=== PATIENT | female | born 1955 | race Caucasian/White ===

== ENCOUNTER 2019-12-12 15:25 | Emergency (ER) | payer OTHER ==
[2019-12-12 15:31] VITALS: TEMP 98
[2019-12-12] MEDS ORDERED: ONDANSETRON 4 MG/2 ML VIAL IVP STA (15:48)
[2019-12-12] MEDS ORDERED: SODIUM CHLORIDE 0.9% 500 ML 500 ML IV STA (15:48)
[2019-12-12] MEDS ORDERED: diphenhydrAMINE 50 MG/ML 1 ML VIAL IVP STA (15:48)
--- NOTE | 2019-12-12 15:56 | ED ---
General Adult HPI - General Chief complaint: Headache Stated complaint: Headache Time Seen by Provider: 12/12/19 15:34 Source: patient, RN notes reviewed, old records reviewed Mode of arrival: ambulatory Limitations: no limitations - History of Present Illness Initial comments: 64-year-old female patient presents to ED with chief complaint of right temporal headache. Patient reports that she does occasionally get mild migraines however this headache is worse than normal. She reports that she woke up with a headache at approximately 7:30 this morning. Reports that when she is at rest the headache is mild however whenever she walks the headache becomes more severe. She denies any changes in vision. She denies any loss of consciousness. Describes it as a pressure. Denies any other complaints. Systemic: Pt denies fatigue, fever/chills, rash. Pt denies weakness, night sweats, weight loss. Neuro: Pt denies visual disturbances, syncope or pre-syncope. HEENT: Pt denies ocular discharge or irritation, otalgia, rhinorrhea, pharyngitis or notable lymphadenopathy. Cardiopulmonary: Pt denies chest pain, SOB, heart palpitations, dyspnea on exert ion. Abdominal/GI: Pt denies abdominal pain, n/v/d. : Pt denies dysuria, burning w/ urination, frequency/urgency. Denies new onset urinary or bowel incontinence. MSK: Pt denies myalgia, loss of strength or function in extremities. Neuro: Pt denies new onset weakness, paresthesias. - Related Data Home Medications Medication Instructions Recorded Confirmed Escitalopram [Lexapro] 10 mg PO HS 12/12/19 12/12/19 Loratadine [Claritin] 10 mg PO DAILY PRN 12/12/19 12/12/19 Pseudoephedrine [Sudafed] 30 mg PO DAILY PRN 12/12/19 12/12/19 Previous Rx's Medication Instructions Recorded Ketorolac [Toradol] 10 mg PO Q8HR PRN #10 tab 12/12/19 Allergies Allergy/AdvReac Type Severity Reaction Status Date / Time codeine Allergy Nausea & Verified 12/12/19 16:46 Vomiting & Diarrhea metoclopramide [From Reglan] Allergy muscle Verified 12/12/19 16:46 stiffness Review of Systems ROS Statement: Those systems with pertinent positive or pertinent negative responses have been documented in the HPI. ROS Other: All systems not noted in ROS Statement are negative. Past Medical History Past Medical History: Cancer History of Any Multi-Drug Resistant Organisms: None Reported Past Surgical History: Cholecystectomy, Hysterectomy Additional Past Surgical History / Comment(s): lt reynaldo Past Psychological History: Anxiety Smoking Status: Former smoker Past Alcohol Use History: None Reported Past Drug Use History: None Reported General Exam - General Exam Comments Initial Comments: Constitutional: NAD, AOX3, Pt has pleasant affect. HEENT: NC/AT, trachea midline, neck supple, no lymphadenopathy. External ears appear normal, without discharge. Mucous membranes moist. Eyes PERRLA, EOM intact. There is no scleral icterus. No pallor noted. Cardiopulmonary: RRR, no murmurs, rubs or gallops, no JVD noted. Lungs CTAB in anterior and posterior luna. No peripheral edema. Abdominal exam: Abdomen soft and non-distended. Abdomen non-tender to palpation in all 4 quadrants. Bowel sounds active in LLQ. No hepatosplenomegaly. No ecchymosis Neuro: CN II-XII intact. No nuchal rigidity. No raccon eyes, no hernandez sign, no hemotympanum. No cervical spinal tenderness. Temporal region is nontender with no skin changes or palpable cord. Repeat neurologic exam wnl. MSK: Sensation intact in upper and lower extremities. Full active ROM in upper and lower extremities, 5/5 stregnth. Limitations: no limitations Course Vital Signs 12/12/19 15:27 Temperature 98.0 F Pulse Rate 69 Respiratory 20 Rate Blood Pressure 145/84 O2 Sat by Pulse 96 Oximetry Medical Decision Making - Medical Decision Making 64-year-old female patient presents a chief complaint of headache right temporal region. No masses this morning. Patient both understand, afebrile. Physical exam displayed intact neurologic exam. Patient will signs are stable, afebrile. Brain CT without contrast is negative for acute process. CT angiogram head is negative for acute process. Patient reports that her headache resolved immediately after receiving Toradol. She states that she is feeling much improved and is requesting discharge. She does request that I prescribe some Toradol to her pharmacy that she can use if necessary. Patient will be discharged to follow up with her primary care provider will turn the ER physician worsens. Case discussed with Dr. Garcia. - Lab Data Result diagrams: 12/12/19 16:05 12/12/19 16:11 Lab Results 12/12/19 12/12/19 Range/Units 16:05 16:11 WBC 6.7 (3.8-10.6) k/uL RBC 4.54 (3.80-5.40) m/uL Hgb 13.2 (11.4-16.0) gm/dL Hct 41.6 (34.0-46.0) % MCV 91.5 (80.0-100.0) fL MCH 29.0 (25.0-35.0) pg MCHC 31.7 (31.0-37.0) g/dL RDW 13.7 (11.5-15.5) % Plt Count 216 (150-450) k/uL Neutrophils % 61 % Lymphocytes % 26 % Monocytes % 7 % Eosinophils % 3 % Basophils % 1 % Neutrophils # 4.1 (1.3-7.7) k/uL Lymphocytes # 1.8 (1.0-4.8) k/uL Monocytes # 0.5 (0-1.0) k/uL Eosinophils # 0.2 (0-0.7) k/uL Basophils # 0.1 (0-0.2) k/uL ESR 16 (0-20) mm/hr Sodium 139 (137-145) mmol/L Potassium 4.0 (3.5-5.1) mmol/L Chloride 107 (98-107) mmol/L Carbon Dioxide 24 (22-30) mmol/L Anion Gap 8 mmol/L BUN 15 (7-17) mg/dL Creatinine 0.85 (0.52-1.04) mg/dL Est GFR (CKD-EPI)AfAm 84 (>60 ml/min/1.73 sqM) Est GFR (CKD-EPI)NonAf 73 (>60 ml/min/1.73 sqM) Glucose 133 H (74-99) mg/dL Calcium 9.2 (8.4-10.2) mg/dL Magnesium 2.3 (1.6-2.3) mg/dL Total Bilirubin 0.4 (0.2-1.3) mg/dL AST 33 (14-36) U/L ALT 33 (4-34) U/L Alkaline Phosphatase 67 (38-126) U/L Total Protein 7.0 (6.3-8.2) g/dL Albumin 4.3 (3.5-5.0) g/dL Disposition Clinical Impression: Acute headache Disposition: HOME SELF-CARE Condition: Stable Instructions (If sedation given, give patient instructions): Acute Headache (ED) Additional Instructions: Follow-up with primary care provider tomorrow. Return to ER if condition worsens in any way. Prescriptions: Ketorolac [Toradol] 10 mg PO Q8HR PRN #10 tab PRN Reason: pain Is patient prescribed a controlled substance at d/c from ED?: No Referrals: Nonstaff,Physician [REFERRING] - 1-2 days
[2019-12-12 16:26] LABS: Basophils # (A) 0.1 k/uL (0-0.2); Basophils % (A) 1 %; Eosinophils # (A) 0.2 k/uL (0-0.7); Eosinophils % (A) 3 %; HCT 41.6 % (34.0-46.0); HGB 13.2 gm/dL (11.4-16.0); Lymphocytes # (A) 1.8 k/uL (1.0-4.8); Lymphocytes % (A) 26 %; MCHC 31.7 g/dL (31.0-37.0); MCV 91.5 fL (80.0-100.0); Mean Platelet Volume 7.3; Monocytes # (A) 0.5 k/uL (0-1.0); Monocytes % (A) 7 %; Neutrophils # (A) 4.1 k/uL (1.3-7.7); Neutrophils % (A) 61 %; Platelet Count 216 k/uL (150-450); RBC 4.54 m/uL (3.80-5.40); RDW 13.7 % (11.5-15.5); WBC 6.7 k/uL (3.8-10.6)
[2019-12-12 16:42] LABS: Albumin 4.3 g/dL (3.5-5.0); Calcium 9.2 mg/dL (8.4-10.2); Magnesium 2.3 mg/dL (1.6-2.3); Total Bilirubin 0.4 mg/dL (0.2-1.3)
[2019-12-12 17:10] LABS: Erythrocyte Sedimentation Rate 16 mm/hr (0-20)
--- NOTE | 2019-12-12 17:52 | CT ---
EXAMINATION TYPE: CT brain wo con DATE OF EXAM: 12/12/2019 COMPARISON: None HISTORY: DAMIAN CT DLP: 1060 mGycm Automated exposure control for dose reduction was used. Ventricles have normal size. There is no mass effect nor midline shift. There is no sign of intracran ial hemorrhage. There is mild atrophy appropriate for age. Calvarium is intact. IMPRESSION: Normal unenhanced head CT scan.
--- NOTE | 2019-12-12 17:55 | CT ---
EXAMINATION TYPE: CT angio head DATE OF EXAM: 12/12/2019 COMPARISON: None HISTORY: DAMIAN CT DLP: 588.1 mGycm Automated exposure control for dose reduction was used. CONTRAST: Performed with IV Contrast, patient injected with 100 mL of Isovue 300. Multiple axial sections were obtained from the skull base to the vertex of the brain with IV contrast and 3-D post processed images. There is arterial flow in the anterior middle and posterior cerebral arteries. There is arterial flow in the vertebrobasilar artery system. There is diminutive basilar artery. The posterior cerebral art eries appear to fill mostly through the posterior communicating arteries. There is no mass effect. I see no evidence of intracranial aneurysm or neovascularity. I see no evidence of intracranial arteria l stenosis. There is normal contrast opacification of the venous sinuses. IMPRESSION: Negative CT angiogram of the brain. Posterior cerebral arteries fill mostly through the posterior com municating arteries.
[2019-12-12] MEDS ORDERED: ACETAMINOPHEN TAB 325 MG TAB PO STA (18:15)
[2019-12-12] MEDS ORDERED: KETOROLAC 30 MG/ML 1 ML VIAL IVP STA (18:15)
[2019-12-12 19:09] VITALS: BP 133/82; PULSE 61; RESP 18
== END 2019-12-12 19:20 | disposition home or self-care (01) ==
LOC: EC 15:25
DX: R51 Headache (principal); Z87.891 Personal history of nicotine dependence; F41.9 Anxiety disorder, unspecified; Z79.899 Other long term (current) drug therapy
CPT/HCPCS: 99284; 96374; 96375 ×2; 96361 ×2; 36415; 80053; 85652; 83735; 85025; 70496; 70450; J1200; J2405; J1885; Q9967